=== PATIENT | male | born 1960 | race African-American/Black ===

== ENCOUNTER 2018-11-30 13:34 | Emergency (ER) | payer OTHER ==
[~2018-11-30] VITALS: Ht 165.1 cm; Wt 80.0 kg
[2018-11-30 13:48] VITALS: Ht 165.1 cm; Wt 80.0 kg
[2018-11-30] MEDS ORDERED: DOCU-144 PO (15:46)
[2018-11-30] MEDS ORDERED: IBUP-1542 PO (15:46)
--- NOTE | 2018-11-30 15:49 | ERD ---
ER Documentation Chief Complaint Chief Complaint LIGHT HEADED, BENITES, TIGHTNESS BACK NECK, ABDOMINAL PAIN HPI 58-year-old male presents the emergency room with multiple complaints. Patient states that he has tightness in the back and the neck. He reports no fevers chills or headache. He also reports a nonspecific visceral abdominal discomfort that he reports is feeling like "I am all stuffed up." He reports no nausea or vomiting. He reports no blood in bowel movements. ROS All systems reviewed and are negative except as per history of present illness. Medications Home Meds Active Scripts Docusate Sodium* (Colace*) 100 Mg Capsule, 100 MG PO TID, #30 CAP Prov:ARABELLA,CORA 11/30/18 Ibuprofen* (Ibuprofen*) 600 Mg Tablet, 600 MG PO Q6H PRN for PAIN, #30 TAB Prov:ARABELLACORA 11/30/18 PMhx/Soc History of Surgery: No Anesthesia Reaction: No Hx Neurological Disorder: No Hx Respiratory Disorders: No Hx Cardiac Disorders: No Hx Psychiatric Problems: No Hx Miscellaneous Medical Probl: No Hx Alcohol Use: No Hx Substance Use: No Hx Tobacco Use: No Smoking Status: Never smoker FmHx Noncontributory for chief complaint Physical Exam Vitals Vital Signs Date Temp Pulse Resp B/P (MAP) Pulse Ox O2 O2 Flow FiO2 Time Delivery Rate 11/30/18 62 18 139/84 100 Room Air 15:15 (102) 11/30/18 98.1 82 18 147/75 99 13:48 (99) Physical Exam GENERAL: The patient is well developed and appropriate for usual state of health in no apparent distress HEENT: Pupils equal, round, and reactive to light. EOMI. There is no scleral icterus. NECK: C-spine is soft and supple, there is no meningismus. There is no cervical lymphadenopathy. LUNGS: Clear to auscultation bilaterally. There are no rales, wheezes or rhonch i. HEART: Regular rate and rhythm, no murmurs, clicks, rubs or gallops. ABDOMEN: Soft, non-tender, non-distended. There are bowel sounds in all four quadrants. No rebound or guarding. EXTREMITIES: There is no peripheral cyanosis or edema. No focal swelling or erythema. Back: No midline spinal tenderness in the cervical, thoracic or lumbar spine. NEURO: The patient moves all four extremities with 5/5 strength. Cranial nerves II - XII are intact. Normal gait. Alert and oriented SKIN: There is no apparent rash or petechiae. HEME/LYMPHATIC: There is no evidence of excessive bruising or lymphedema. PSYCHIATRIC: The patient does not appear anxious or depressed. Result Diagram: 11/30/18 1429 11/30/18 1429 Results 24 hrs Laboratory Tests Test 11/30/18 14:29 White Blood Count 5.9 10^3/ul Red Blood Count 5.36 10^6/ul Hemoglobin 14.8 g/dl Hematocrit 42.2 % Mean Corpuscular Volume 78.7 fl Mean Corpuscular Hemoglobin 27.6 pg Mean Corpuscular Hemoglobin Concent 35.1 g/dl Red Cell Distribution Width 13.3 % Platelet Count 113 10^3/UL Mean Platelet Volume 10.1 fl Immature Granulocytes % 0.200 % Neutrophils % 67.5 % Lymphocytes % 24.4 % Monocytes % 5.0 % Eosinophils % 2.2 % Basophils % 0.7 % Nucleated Red Blood Cells % 0.0 /100WBC Immature Granulocytes # 0.010 10^3/ul Neutrophils # 4.0 10^3/ul Lymphocytes # 1.4 10^3/ul Monocytes # 0.3 10^3/ul Eosinophils # 0.1 10^3/ul Basophils # 0.0 10^3/ul Nucleated Red Blood Cells # 0.0 10^3/ul Sodium Level 141 mmol/L Potassium Level 4.0 mmol/L Chloride Level 103 mmol/L Carbon Dioxide Level 27 mmol/L Anion Gap 11 Blood Urea Nitrogen 15 mg/dl Creatinine 1.25 mg/dl Est Glomerular Filtrat Rate mL/min > 60 mL/min Glucose Level 300 mg/dl Calcium Level 9.1 mg/dl Total Bilirubin 0.8 mg/dl Direct Bilirubin 0.00 mg/dl Indirect Bilirubin 0.8 mg/dl Aspartate Amino Transf (AST/SGOT) 22 IU/L Alanine Aminotransferase (ALT/SGPT) 35 IU/L Alkaline Phosphatase 64 IU/L Total Protein 7.0 g/dl Albumin 4.1 g/dl Globulin 2.90 g/dl Albumin/Globulin Ratio 1.41 Lipase 69 U/L Procedures/MDM Patient was taken to a room, seen and evaluated. Comfort measures were initiated. Diagnostic tests were ordered and reviewed. RADIOLOGY: Reviewed with the radiologist REEVALUATION: 1545: Diagnostic tests were appreciated discussed with the patient. He remained clinically nontoxic and appropriate for discharge. MEDICAL DECISION MAKIN-year-old male presents to the emergency department with nonspecific symptoms of GI and what appears to be musculoskeletal etiology. Diagnostic work-up shows no evidence of significant infection, patient shows no evidence of neurologic disability. Overall, patient appears to be clinically nontoxic and appropriate for supportive management. Departure Diagnosis: Primary Impression: Multiple complaints Condition: Stable Patient Instructions: Weakness, Unk Cause Additional Instructions: See your doctor for follow-up as discussed. Take a copy of your test results, if appropriate, to this follow-up visit. See your doctor or return here if your symptoms do not improve as expected. At any time, please return to the emergency department for any change or worsening in her symptoms. CORA BELL Nov 30, 2018 15:49
[2018-11-30 15:57] VITALS: BP 139/87; PULSE 66; RESP 18
== END 2018-11-30 15:59 | disposition home or self-care (01) ==
LOC: E/R 13:34
DX: R42 Dizziness and giddiness (principal); R10.9 Unspecified abdominal pain; R51 Headache
CPT/HCPCS: 71045; 74018; 80053; 83690; 85025; Z7502